=== PATIENT | male | born 1980 | race American Indian/Alaskan Native ===

== ENCOUNTER 2024-05-14 10:01 | Day surgery (SDC) | payer BC, OTHER ==
[~2024-05-14] VITALS: Ht 175.3 cm; Wt 106.8 kg
[~2024-05-14 10:01] MED LIST: ACETAMINOPHEN-1 EAC1 PO; IBLOOD GLUCOSE TEST STRIP 1 EA TEST VI PRN; LACTATED RINGER'S 1,000 ML IV SCH; LIDOCAINE HCL 1% 5 ML SDV INJ ONE; MIDAZOLAM HCL 5 MG/5 ML VIAL IV PRN; WEGOVY0.25 MG/0. SUB-Q; fentaNYL citrate 100 MCG/2 ML VIAL IV PRN
[2024-05-14] MEDS ORDERED: MIDAZOLAM HCL 5 MG/5 ML VIAL ONE (10:10)
[2024-05-14] MEDS ORDERED: fentaNYL citrate 100 MCG/2 ML VIAL ONE (10:10)
[2024-05-14 10:13] VITALS: BP 133/85
--- NOTE | 2024-05-14 11:25 | NUR ---
05/14/24 Sathish5 Katty He 1117- PT ARRIVES TO PACU, LEFT LATERAL POSITION. AWAKE OFF AND ON AND DROWSY, DENIES PAIN AND NAUSEA. O2 AT 3L PER NC, BREATHING EVEN AND NON LABORED. LR INFUSING TO RW IV. ABD SOFT, NON DISTENDED. ENCOURAGED TO PASS GAS. ALL MONITORS IN PLACE. 1123- O2 SATS 100% ON 3L PER NC, MOVED TO ROOM AIR AT THIS TIME. RESTING INTERMITTENTLY. NO SIGNS OF DISTRESS.
[2024-05-14 11:53] VITALS: BP 154/99
--- NOTE | 2024-05-16 11:23 | OR ---
[facility] [address] [place], [place] [address] Signed DATE OF OPERATION: 05/14/2024 SURGEON: Diaz Stein MD PREOPERATIVE DIAGNOSES: 1. Family history of colon cancer (father age 60). 2. Episodic rectal bleeding. POSTOPERATIVE DIAGNOSES: 1. Polyps x3. 2. Sigmoid diverticula. PROCEDURE: Total colonoscopy to cecum with cold snare polypectomy x2 and cold morcellation polypectomy x1. INDICATION: This 43-year-old [place] man is a patient of ALEXX Graves of the [facility]. He has had episodic rectal bleeding, which is painless. He also was noted to have family history of colon cancer in his father at age 60. He has no prior colon evaluation. He has occasional constipation. I have recommended colonoscopy on the basis of the facts. He understands the risk of bleeding, infection, and perforation related to colonoscopy and wished to proceed. FINDINGS: The prep was excellent. Complete colonoscopy was undertaken to the cecum. There were three polyps, one pedunculated in the mid descending colon, another small sessile polyp of the sigmoid and another small polyp of the rectosigmoid. Retroflexed views showed no sign of internal hemorrhoids. He did have scattered diverticula of the sigmoid, which were small. PROCEDURE IN DETAIL: The patient was brought to the endoscopy suite and placed in lateral decubitus position given intravenous sedation to the point of slurred speech and nystagmus with full cardiopulmonary monitoring. Digital rectal examination was normal. An Olympus video colonoscope was passed in the rectum and manipulated throughout the colon noting a small polyp at the rectosigmoid. This was excised with cold snare technique. Scope was then advanced to the sigmoid where another similar such polyp was noted, this was excised with cold snare technique. Scope was further advanced and Electronically Signed By: DIAZ STEIN MD 05/16/24 1123 PATIENT NAME: FLAKO LAWRENCE OPERATIVE REPORT DATE OF : 80 REPORT #: [id number] PHYSICIAN: DIAZ STEIN MD PCP: CARLA MENDEZ REPORT IS CONFIDENTIAL AND NOT TO BE RELEASED WITHOUT AUTHORIZATION [facility] [address] [place], [place] [address] Signed ultimately passed to the cecum. The ileocecal valve and appendiceal orifice were normal. The scope was withdrawn from that point. Careful examination showed no sign of abnormality until approximately descending colon where a small pedunculated adenomatous polyp was noted, this was excised with cold snare technique. Scope was withdrawn and few scattered diverticula were noted in the sigmoid. Retroflexed view of the rectum was normal. Scope was removed. The patient was taken to the recovery room in good condition. CONCLUDING DIAGNOSES: 1. Polyps x3. 2. Diverticula. PLAN: Recommend repeat colonoscopy in three years, sooner if symptoms should develop. I would recommend a high-fiber diet or a fiber supplement such as Metamucil powder one scoop p.o. daily. He will return to the ongoing care of Carla Mendez at [facility] in the meantime. MD JERROD Doty/ODMINICKL /[id number] cc: Carla Mendez [facility] Copies: ~ Electronically Signed By: DIAZ STEIN MD 05/16/24 1123 PATIENT NAME: FLAKO LAWRENCE OPERATIVE REPORT DATE OF : 80 REPORT #: [id number] PHYSICIAN: DIAZ STEIN MD PCP: CARLA MENDEZ REPORT IS CONFIDENTIAL AND NOT TO BE RELEASED WITHOUT AUTHORIZATION
--- NOTE | 2024-05-18 14:56 | PATH ---
[facility] [address], [place] [address] Signed SPECIMEN(S): A RECTOSIGMOID POLYP SPECIMEN(S): B DESCENDING/LEFT COLON POLYP SPECIMEN(S): C SIGMOID POLYP SPECIMEN SOURCE: A. RECTOSIGMOID POLYP B. DESCENDING/LEFT COLON POLYP C. SIGMOID POLYP CLINICAL HISTORY: Rectal bleeding, constipation, abdominal pain, diverticulosis. Family history of colon cancer. Post-op: Polyps x3, diverticulosis. FINAL PATHOLOGIC DIAGNOSIS: A. Rectosigmoid polyp: - Hyperplastic polyp (one fragment). B. Descending/left colon polyp: - Tubular adenoma. C. Sigmoid polyp: - Tubular adenoma (one fragment). JVR:mishel MICROSCOPIC EXAMINATION: Histologic sections of all submitted blocks are examined by light microscopy. These findings, together with the gross examination, support the pathologic diagnosis. GROSS DESCRIPTION: A. The specimen, labeled and designated "Reji, rectosigmoid polyp," is received in formalin and consists of one bolivar soft tissue fragment, 0.3 cm. Entirely submitted in (A1). B. The specimen, labeled and designated "Reji, descending/left colon polyp," is received in formalin and consists of a pink-bolivar polypoid piece of tissue (0.7 x 0.5 x 0.5 cm). The possible resection margin is inked blue and the tissue is bisected to reveal pink-bolivar soft cut surfaces. The specimen is submitted entirely in cassette (B1). C. The specimen, labeled and designated "Reji, sigmoid polyp," is received in formalin and consists of one bolivar soft tissue fragment, 0.3 cm. Entirely submitted in (C1). VB (under the direct supervision of a pathologist) The Gross Description was prepared using a voice recognition system. The report PATIENT NAME: FLAKO LAWRENCE PATHOLOGY DATE OF : 80 REPORT #: [id number] PHYSICIAN: [facility] PCP: ELIZ RILEY REPORT IS CONFIDENTIAL AND NOT TO BE RELEASED WITHOUT AUTHORIZATION [facility] [address], [place] [address] Signed was reviewed for accuracy; however, sound-alike word errors, addition and/or deletions may occur. If there is any question about this report, please contact Client Services. ADDITIONAL NOTES: Immunohistochemical and/or in situ hybridization studies if performed in this case included appropriate positive controls that reacted as expected. This test was developed and its performance characteristics determined by [facility]. It has not been cleared or approved by the U.S. Food and Drug Administration. The FDA has determined that such clearance or approval is not necessary. This test is used for clinical purposes. It should not be regarded as investigational or for research. [facility] is certified under the Clinical Laboratory Improvement Amendments of 1988 (CLIA) as qualified to perform high complexity clinical laboratory testing. PERFORMING LABORATORY: Technical component was performed by [facility], [address] [place] [id number] (CLIA# [id number]). Professional interpretation was performed by [email or web address], [address] [place] [id number] (CLIA#: [id number]). Diagnostician: Taurus Membreno MD Pathologist Electronically Signed 05/18/2024 Copies: ~ PATIENT NAME: FLAKO LAWRENCE PATHOLOGY DATE OF : 80 REPORT #: [id number] PHYSICIAN: [facility] PCP: ELIZ RILEY REPORT IS CONFIDENTIAL AND NOT TO BE RELEASED WITHOUT AUTHORIZATION
== END 2024-05-14 12:00 | disposition home or self-care (01) ==
LOC: DS 10:01
PROVIDERS: ATTEND Surgery
PROC: 0DBE8ZX Excision of Large Intestine, Via Natural or Artificial Opening Endoscopic, Diagnostic (ICD-10-PCS; principal; 2024-05-14 11:00)
DX: D12.5 Benign neoplasm of sigmoid colon (principal); D12.4 Benign neoplasm of descending colon; K63.5 Polyp of colon; K57.31 Diverticulosis of large intestine without perforation or abscess with bleeding; Z80.0 Family history of malignant neoplasm of digestive organs; I10 Essential (primary) hypertension; E66.9 Obesity, unspecified; Z68.34 Body mass index [BMI] 34.0-34.9, adult; Z88.0 Allergy status to penicillin; Z79.899 Other long term (current) drug therapy
CPT/HCPCS: 99153; G0500; J2250; J3010; J7121